=== PATIENT | male | born 1970 | race Caucasian/White ===

== ENCOUNTER 2018-04-30 05:19 | Day surgery (SDC) | payer OTHER, SELFPAY ==
[2018-04-30 05:41] VITALS: BP 110/75; PULSE 64; RESP 16; TEMP 36.8; O2SAT 99; BMI 28.8
--- NOTE | 2018-04-30 06:23 | HP.PCM_ITS ---
Problem List (1) Family history of malignant neoplasm of colon in first degree relative diagnosed when younger than 60 years of age Status: Acute History of Present Illness Date of Admission: 04/30/18 The patient is a 47 year old M family history of colon cancer in his [facility]. The patient has had one previous colonoscopy 5 years prior. There were no findings at that time. He denies any bright red blood per rectum or melena. No abdominal pain. No change of bowel habits. He otherwise enjoys good health. Past Medical History Allergies Penicillins [PCN] Allergy (Verified 04/27/18 11:27) Hives Home Medications: Ambulatory Orders Medication Instructions Recorded NK 04/27/18 Smoking Status: Never smoker Review of Systems Constitutional: Denies: Anorexia HEENT: Denies: Difficulty Swallowing Cardiovascular: Denies: Chest Pain, Claudication Respiratory: Denies: Cough Gastrointestinal: Denies: Abdominal Pain, Diarrhea Psychiatric: Denies: Anxiety Endocrine: Denies: Change in Body Habitus VTE Information - Inpt Only VTE Present on Admission: No Patient Problems: Active and Suspected Problems Family history of malignant neoplasm of colon in first degree relative diagnosed when younger than 60 years of age (Acute) - Physical Exam General: Alert, Oriented x3, Cooperative, No apparent distress HEENT: Atraumatic Oral: Moist Mucosa Neck: Supple Lungs: Clear to auscultation, Normal air movement Cardiovascular: Regular rate, Regular Rhythm Abdomen: Bowel Sounds Present, Soft, Non Tender Extremities: No Calf Tenderness Skin: No rashes Neurological: Cranial nerves II-XII grossly intact Psych/Mental Status: Normal Affect Vital Signs Temp Pulse Resp BP Pulse Ox 98.2 F 64 16 110/75 99 04/30/18 05:41 04/30/18 05:41 04/30/18 05:41 04/30/18 05:41 04/30/18 05:41 Oxygen Delivery Method Room Air Weight: 218 lb 14.704 oz Body Mass Index (BMI) 28.8 Assessment/Plan All Active Problems Family history of malignant neoplasm of colon in first degree relative diagnosed when younger than 60 years of age (Acute) I recommended the patient is screening colonoscopy with possible biopsy or polypectomy is indicated. He is aware of the technique, benefits, risks and alternatives. He has had an opportunity to ask and have questions answered. Zack Owusu M.D., F.A.C.S.
--- NOTE | 2018-04-30 06:30 | COLBX_PTH ---
PATIENT: JOSE BEDOLLA LOC: EN U#:[id number] AGE/SX: 47/M ROOM: RE04/30/[address]: Dr. Zack Owusu MD : 1970 BED: DIS: 04/30/2018 SPEC #: [id number] RECD: 04/30/18 09:06 STATUS: FRANCISCO DHILLONNaun #: [id number] KHUSHBOO: 04/30/18 06:[address]: Zack Owusu DEPT: SURGICAL PATHOLOGY RECD BY: Patrice Hernandez ENTERED: 04/30/18 11:36 SP TYPE: COLON BX OT DR: Dr. Filemon Sanon MD Tissues: A - SPLENIC FLEXURE B - Descending colon Procedures: Surgery Specimen Level IV HEADER OPERATION: Colonoscopy (MOD) PRE-OP DIAGNOSIS: Screening, family history of colon cancer TISSUE SUBMITTED: A. Polyp splenic flexure, B. Descending colon polyp MICROSCOPIC DIAGNOSIS A. Polyp at splenic flexure, biopsy: Tubular adenoma. Fragments of fecal material. B. Descending colon polyp, biopsy: Tubular adenoma. Fragments of fecal material. ELOISA:marlene 05/01/18 MICROSCOPIC DESCRIPTION Slides are reviewed. GROSS DESCRIPTION A - Received in fixative is one container labeled with the patient's name and designated polyp splenic flexure. The specimen consists of a cedillo-pink polyp measuring 0.7 x 0.5 x 0.3 cm. Also present in the container are multiple fragments of cedillo soft tissue measuring in aggregate 0.5 x 0.1 x 0.1 cm. The specimen is totally submitted in one cassette. B - Received in fixative is one container labeled with the patient's name and designated descending colon polyp. The specimen consists of multiple irregular fragments of light cedillo soft tissue that in aggregate measure 0.4 x 0.3 x 0.1 cm. The specimen is totally submitted in one cassette. / ELOISA:marlene 04/30/18 TC:1 CPT: 85135 x2
[2018-04-30 06:57] VITALS: BP 108/83; BP 111/81; BP 115/76; BP 115/96; BP 119/83; BP 122/83; BP 123/82; O2SAT 100; O2SAT 95; O2SAT 98; O2SAT 99
[2018-04-30 06:59] VITALS: BP 110/75; BP 117/81; PULSE 58; RESP 14; TEMP 36.2; O2SAT 95
--- NOTE | 2018-04-30 06:59 | OP.ENDO_ITS ---
Patient Name: Elgin Andrews Procedure Date: 04/30/2018 6:07 AM Date of : 1970 Age: 47 Procedure: Colonoscopy Indications: Family history of colon cancer in a first-degree relative Providers: Zack Owusu MD Referring MD: Zack Owusu MD Medicines: Midazolam 5 mg IV, Meperidine 150 mg IV Patient Profile: Last Colonoscopy: 5 years ago. Complications: No immediate complications. Procedure: Pre-Anesthesia Assessment: - Prior to the procedure, a History and Physical was performed, and patient medications and allergies were reviewed. The patient's tolerance of previous anesthesia was also reviewed. The risks and benefits of the procedure and the sedation options and risks were discussed with the patient. All questions were answered, and informed consent was obtained. Prior Anticoagulants: The patient has taken no previous anticoagulant or antiplatelet agents. ASA Grade Assessment: I - A normal, healthy patient. After reviewing the risks and benefits, the patient was deemed in satisfactory condition to undergo the procedure. After I obtained informed consent, the scope was passed under direct vision. Throughout the procedure, the patient's blood pressure, pulse, and oxygen saturations were monitored continuously. The Colonoscope was introduced through the anus and advanced to the cecum, identified by appendiceal orifice and ileocecal valve. The colonoscopy was performed without difficulty. The patient tolerated the procedure fairly well. The quality of the bowel preparation was good. The ileocecal valve was photographed. Moderate Sedation: Moderate (conscious) sedation was personally administered by the endoscopist. The following parameters were monitored: oxygen saturation, heart rate, blood pressure, and response to care. Total physician intraservice time was 15 minutes. Scope In: 6:33:46 AM Scope Withdrawal Time 0 hours 11 minutes 46 seconds Scope Out: 6:53:10 AM Total Procedure Duration Time 0 hours 19 minutes 24 seconds Findings: The digital rectal exam findings include enlarged prostate. Two sessile polyps were found in the mid descending colon and splenic flexure. These polyps were removed with a hot snare. Resection and retrieval were complete. To prevent bleeding post-intervention, one hemostatic clip was successfully placed at the splenic flexure site. There was no bleeding at the end of the procedure. The exam was otherwise without abnormality. Impression: - Enlarged prostate found on digital rectal exam. - Two polyps in the mid descending colon and at the splenic flexure, removed with a hot snare. Resected and retrieved. Clip was placed at the splenic flexure. - The examination was otherwise normal. Recommendation: - Discharge patient to home. - Resume previous diet. - Continue present medications. - Repeat colonoscopy in 3 years for surveillance. - Telephone my office for pathology results in 1 week. Procedure Code(s): --- Professional --- 31610, Colonoscopy, flexible; with removal of tumor(s), polyp(s), or other lesion(s) by snare technique 17273, 59, Moderate sedation services provided by the same physician or other qualified health healthcare liaison performing the diagnostic or therapeutic service that the sedation supports, requiring the presence of an independent trained observer to assist in the monitoring of the patient's level of consciousness and physiological status; initial 15 minutes of intraservice time, patient age 5 years or older Diagnosis Code(s): --- Professional --- D12.4, Benign neoplasm of descending colon D12.3, Benign neoplasm of transverse colon (hepatic flexure or splenic flexure) Z80.0, Family history of malignant neoplasm of digestive organs N40.0, Benign prostatic hyperplasia without lower urinary tract symptoms CPT copyright 2017 [employer]. All rights reserved. The codes documented in this report are preliminary and upon firearms specialist review may be revised to meet current compliance requirements. Zack Owusu MD 04/30/2018 6:59:06 AM This report has been signed electronically. Number of Addenda: 0 Note Initiated On: 04/30/2018 6:07 AM
[2018-04-30 07:05] VITALS: BP 108/75; BP 110/75; PULSE 59; RESP 14; O2SAT 95
[2018-04-30 07:10] VITALS: BP 110/75; BP 117/77; PULSE 55; RESP 14; TEMP 36.4; O2SAT 94
[2018-04-30 07:41] VITALS: BP 110/75
== END 2018-04-30 07:40 | disposition home or self-care (01) ==
LOC: EN 05:20 → AC 05:25
PROVIDERS: Family Provider Family Medicine; PCP Family Medicine; Referring Provider Surgery; Visit Provider Surgery
PROC: 0DJD8ZZ Inspection of Lower Intestinal Tract, Via Natural or Artificial Opening Endoscopic (ICD-10-PCS; CPT 45378; principal; 2018-04-30 06:25)
DX: Z12.11 Encounter for screening for malignant neoplasm of colon (principal); D12.4 Benign neoplasm of descending colon; D12.3 Benign neoplasm of transverse colon; N40.0 Benign prostatic hyperplasia without lower urinary tract symptoms; Z80.0 Family history of malignant neoplasm of digestive organs
CPT/HCPCS: 45380; 88305; 99152; 99153; J7120

== ENCOUNTER → 2020-09-25 08:12 | Outpatient (CLI) | payer OTHER, SELFPAY ==
--- NOTE | 2020-09-25 08:20 | RAD_ITS ---
STUDY: AIR CONTRAST UPPER GI SERIES REASON FOR EXAM: Male, 50 years old. EPIGASTRIC DISCOMFORT / MILD GERD / ? HIATAL HERNIA FLUOROSCOPY TIME (if supplied): (57 seconds) minutes/seconds. 15 images were obtained. TECHNIQUE: Single CONTRAST AND AIR CONTRAST FLUOROSCOPIC IMAGES. COMPARISON: None. FINDINGS: The cervical esophagus demonstrates normal motility without aspiration. There is no stricture or extrinsic mass effect. No intraluminal polypoid mass is identified. The thoracic esophagus distends well without stricture or mucosal fold thickening. No mucosal ulcerations are identified. There is no extrinsic mass effect. There are no diverticula. No hiatal hernia or gastroesophageal reflux was identified. The stomach distends well without mucosal fold thickening or mucosal ulceration. There is no intraluminal mass. The duodenal bulb is freely distensible without deformity or ulceration. The duodenal sweep is normal in position and caliber. RAD/Upper GI w/BA Swallow IMPRESSION: Normal air-contrast upper GI series. small bowel follow-through exam. Electronically Signed: Kyle Aguilar MD at 14:12 EDT , Service support ,
== END ==
LOC: RAD 08:14
PROVIDERS: PCP Family Medicine; Referring Provider Family Medicine; Visit Provider Family Medicine
DX: R10.9 Unspecified abdominal pain (principal); K21.9 Gastro-esophageal reflux disease without esophagitis
CPT/HCPCS: 74246

== ENCOUNTER 2023-05-19 15:03 | Emergency (ER) | payer OTHER, SELFPAY ==
[2023-05-19 15:04] VITALS: BP 173/94; PULSE 74; RESP 18; TEMP 35.5; O2SAT 100; BMI 32.0
--- NOTE | 2023-05-19 15:31 | EDS_ITS ---
HPI History of Present Illness HPI Narrative: Patient presents with injury to his left middle finger that occurred today. Patient states he got it smashed between a 300 to 400 pound boulder and a brick. Patient states his pain is throbbing. Patient states it is worse with movement and with palpation. Patient admits to some tingling and numbness in the tip of his finger. Patient denies any weakness. Patient does not remember his last tetanus. Chief Complaint: Laceration Informant: patient Occured/Mechanism Mechanism/Context: Yes blunt trauma Onset/Context/Timing Onset: Today Context: Sudden Onset Timing: Continuous Quality of Pain: Throbbing Location: Left middle finger Worsened by: Movement Relieved by: Nothing Associated Symptoms Associated Symptoms: Positive for Parasthesia; Negative for Weakness or Loss of Funtion Narrative Tetanus Immunization: Unknown PFSH PFS Medical History no medical history no medical history Home Medications NK 04/27/18 [History Last Taken Unknown] Allergy/AdvReac Type Severity Reaction Status Date / Time Penicillins [PCN] Allergy Hives Verified 05/19/23 15:06 Surgical History (Updated 05/19/23 @ 15:[address] Carlos Corral DO) Hx of appendectomy Hx of shoulder surgery Hx of tonsillectomy Social History Smoking Status: Never smoker ROS ROS ED Constitutional Constitutional ED: Denies chills or fever(s) Eyes Eyes: Denies blurry vision or change in vision ENT ENT ED: Denies rhinorrhea or sore throat Cardiovascular Cardiovascular: Denies chest pain or palpitations Respiratory/Chest Respiratory/Chest: Denies cough or dyspnea Gastrointestinal Gastrointestinal: Denies nausea or vomiting Genitourinary Genitourinary ED: Denies dysuria or hematuria Musculoskeletal Musculoskeletal: Denies back pain or neck pain Integumentary Denies abscess or rash Neurologic Neurologic: Denies headache(s) or weakness Allergic/Immunologic Allergic/Immunologic ED: Denies mouth swelling or urticaria EXAM Physical Exam Const Vital Signs: 05/19/23 15:04 Temperature 96 F L Temperature Source Temporal Pulse Rate 74 Respiratory Rate 18 Blood Pressure 173/94 H Blood Pressure Mean 120 Pulse Ox 100 Oxygen Delivery Method Room Air Positive well nourished and well developed General Appearance ED: well developed and NAD HEENT Reports moist mucous membranes Neck full ROM and supple Extremity Extremity Narrative: There is a 6 cm L-shaped laceration over the pad of the left middle finger. There is moderate gapping of the wound margins. There is also a 1 cm full- thickness linear laceration over the tip of the left middle finger on the radial aspect. There is minimal gapping of the wound margins. There are no foreign bodies noted. There is no bleeding noted. There is a large subungual hematoma noted. Neuro oriented x3, CN's II-XII intact bilaterally, moves all extremities, no focal motor deficits and no sensory deficits noted Sensorium / Orientation: alert Motor Exam: strength 5/5 throughout MDM MDM MDM Narrative Medical decision making narrative: Differential diagnosis includes open fracture, laceration, and contusion. X- rays of the left middle finger will be obtained to assess for fracture. Radiography Diagnostic Testing: X-rays of the left middle finger were obtained. There are 3 views. On my independent interpretation, there is no acute fracture or dislocation noted. There is no radiopaque foreign body. Radiologist also interpreted the x-rays and agrees. Treatment and Re-Evaluation Narrative: Patient was given a tetanus booster. The wound was cleaned and irrigated with copious amounts of normal saline. The wound was anesthetized with 1% plain lidocaine via digital block. Finger tourniquet was used. The distal/radial wound was closed with 2 simple interrupted # 4-0 nylon sutures and the volar laceration was closed with 7 simple interrupted #4-0 nylon sutures under sterile technique. Patient tolerated the procedure well. Bacitracin dressing was applied. Patient was instructed to keep the wound clean. Patient was instructed to follow-up with his primary care physician in 5 to 7 days. Patient was instructed return if worse in any way. Patient understood and was agreeable with the plan. All questions were answered. Discharge Plan Triage Chief Complaint: Laceration ED Provider: Carlos Corral Dx/Rx/DC Orders Clinical Impression: Laceration of left middle finger, Subungual hematoma of finger of left hand Instructions: ED Subungual Hematoma, ED Laceration Hand with ... Prescriptions: No Action NK Primary Care Provider: Kwame Lima Referrals: Kwame Lima DO [Primary Care Provider] - 7 Days for suture removal Disposition Disposition: Home, Self Care
--- NOTE | 2023-05-19 15:40 | RAD_ITS ---
STUDY: X-RAY - LEFT HAND, ATTENTION THIRD FINGER REASON FOR EXAM: Male, 52 years old. Injury/Pain TECHNIQUE: 3 view(s) of the finger were obtained. COMPARISON: None. FINDINGS: Normal metacarpal head. Normal metacarpophalangeal joint. Normal proximal phalanx. Normal middle phalanx. Normal distal phalanx. Normal proximal interphalangeal joint. Normal distal interphalangeal joint. RAD/Finger(s) Min 2 Views IMPRESSION: No evidence of acute osseous injury. Distal third digit laceration is noted. Electronically Signed: Vinnie Kennedy DO at 15:58 EST ,
[2023-05-19] MEDS: Diphth,Pertuss(Acell),Tet Vac 0.5 ML Vial IM (15:51)
[2023-05-19] MEDS: Lidocaine 1% (20 ml mdv) 20 ML Vial INFILT (15:51)
== END 2023-05-19 18:29 | disposition home or self-care (01) ==
PROVIDERS: Emergency Provider Emergency Medicine; PCP Family Medicine; Visit Provider Emergency Medicine
DX: S61.213A Laceration without foreign body of left middle finger without damage to nail, initial encounter (principal); S60.032A Contusion of left middle finger without damage to nail, initial encounter; Z23 Encounter for immunization; X58.XXXA Exposure to other specified factors, initial encounter
CPT/HCPCS: 12002; 73140; 90471; 90715; 99283